=== PATIENT | male | born 2000 | race Caucasian/White ===

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

== ENCOUNTER 2021-01-09 12:10 | Emergency (ER) | payer BC, OTHER ==
[~2021-01-09] VITALS: Ht 182.9 cm; Wt 82.0 kg
[2021-01-09 12:18] VITALS: BP 147/88
== END 2021-01-09 13:23 | disposition home or self-care (01) ==
LOC: ER 12:11
DX: S61.217A Laceration without foreign body of left little finger without damage to nail, initial encounter (principal); Z88.0 Allergy status to penicillin; W26.8XXA Contact with other sharp object(s), not elsewhere classified, initial encounter; Y93.89 Activity, other specified; Y92.89 Other specified places as the place of occurrence of the external cause; Y99.9 Unspecified external cause status
CPT/HCPCS: 12001; 99282